=== PATIENT | male | born 1940 | race Hispanic/Latino ===

== ENCOUNTER 2016-10-07 03:58 | Inpatient (IN) | payer MEDICARE, MEDICAID ==
[~2016-10-07] VITALS: Ht 174 cm; Wt 71.8 kg
[~2016-10-07 03:58] MED LIST: ASPI-628 PO; ATOR40TA69 PO; CIPR-231 PO; ERGO500029 PO; FLUO20CA25 PO; GLUC100016 PO; LOSA50TA37 PO; MELO-253 PO; OMEP-113 PO; TAMS0.4C29 PO; TENO300T2 PO
[2016-10-07 05:32] VITALS: BP 173/72; PULSE 57; RESP 20; O2SAT 96
[2016-10-07] MEDS ORDERED: 0.9% Sodium Chloride 1,000 ML IV SCH (05:33)
[2016-10-07] MEDS ORDERED: Ondansetron 2 mg/mL 2 mL Inj IVPUSH PRN ×2 (05:35→13:35)
[2016-10-07] MEDS ORDERED: Polyethylene Glycol (PEG) 17 Gm Powder PO PRN ×2 (05:35→13:35)
[2016-10-07] MEDS ORDERED: Alum-Mag Hydrox-Simeth 30 mL Suspension PO PRN ×2 (05:35→13:35)
--- NOTE | 2016-10-07 06:44 | NUR ---
Admission Pt arrived to [facility] 3007 alert and oriented, answering questions appropriately, and able to make needs know. Pt arrived via EMS and was oriented to room, call light bed and policies. Pt was placed on IV fluids and told not to eat of drink anything. Pt agreed. Pt also instructed to call for assistance if he needed to get out of bed. Pt agreed. Interpretive services used for all care.
[2016-10-07 07:40] LABS: APPEARANCE,URINE HAZY (CLEAR,HAZY); COLOR,URINE YELLOW (YELLOW); OCCULT BLOOD,URINE NEGATIVE (NEGATIVE); UROBILINOGEN,URINE NORMAL (NORMAL)
--- NOTE | 2016-10-07 10:30 | NUR ---
Abd discomfrt Kath (daughter at bedside, interpreting for [place] speaking only) P: Pt complained of abd discomfrt, denies pain, reports is more like "upset stomach", PO Maalox offered as ordered by MD. Pt accepted I: Pt given PO Maalox. E: Pt reports abd discomfrt has resolved after PO medication.
[2016-10-07 12:02] VITALS: BP 138/61; PULSE 51; RESP 16; O2SAT 96
[2016-10-07] MEDS ORDERED: HYDR25TA4 PO (12:15)
[2016-10-07] MEDS ORDERED: SUCR1ORA2 PO (12:15)
[2016-10-07] MEDS ORDERED: SIMV40TA5 PO (12:15)
[2016-10-07] MEDS ORDERED: TRAM100C3 PO (12:15)
[2016-10-07] MEDS ORDERED: DICL75TA6 PO (12:15)
--- NOTE | 2016-10-07 13:36 | NUR ---
Social Work: Initial Assessment D: Per EMR review, pt is a 76 year old male admitted for small bowel obstruction. Pt is Medicare with DS supplement; no LTC or VA benefits. PCP is Tere Melgar MD. NOK is Alexa Mckinley Dtr, . Advanced directives not completed- SOCIOLOGY INSTRUCTOR provided information and intervention completed. Readmit score not entered at this time. SOCIOLOGY INSTRUCTOR met with pt and daughter at bedside. Pt is Stateless speaking- dtr provided translation. SW role and contact information provided. See initial assessment. [place], [place]. He is I at baseline and uses no DME. Pt continues to drive and has never had HH or skilled rehab. Pt and daughter express no concerns about discharge back home and state that family will transport pt. Pt has been I during admission. No sw needs identified at this time. A: Pt who is I at baseline. P: Anticipate pt to discharge home with no social work needs once medically stable; SOCIOLOGY INSTRUCTOR to continue to follow. NADIRA Blankenship Addendum: 10/07/16 at 1340 by ARIAS JONES Amended: Links added.
[2016-10-07 13:58] VITALS: PULSE 48
[2016-10-07 14:56] LABS: BASOPHILS % (AUTO) 0.3 % (0-3); MONOCYTES % (AUTO) 11.5 % (4-12); Mean Corpuscular Hemoglobin 29.1 pg (27.0-35.0); Mean Corpuscular Volume 87.9 fL (81-100); NEUTROPHILS % (AUTO) 61.2 % (40-74); Platelet Count 185 bil/L (150-400)
[2016-10-07] MEDS: Dextrose 5% 0.45% NaCl 1,000 ML IV SCH (15:10)
--- NOTE | 2016-10-07 16:14 | NUR ---
Abd discomfrt/BM Pt reports abd discomfrt, requested additional dose of PO Maalox with 650 mg PO Tylenol. Rx given at appro 1515. Reassessment of Rx completed, pt reports decreased adb discomfrt. Pt had had med, light brown formed stool. Call light within reach, will continue to monitor.
[2016-10-07 16:19] VITALS: BP 154/77; PULSE 48; RESP 16; O2SAT 94
[2016-10-07] MEDS: Heparin 5,000 Unit/mL Inj SUBQ SCH (18:04)
--- NOTE | 2016-10-07 18:07 | PCM.HPMED ---
Subjective Date of Service Oct 07, 2016 Primary Provider: Admitting Physician: Wilber Baron MD Primary Care Physician: Chela Melgar MD Attending Physician: Wilber Baron MD Chief Complaint: Abdominal pain History of Present Illness: 76 year old Kyrgyz speaking only male with past medical history as noted below and notable for prior episode of SBO (1st and only episode in June 2016 and resulting in partial bowel resection at that time) presented to [facility] [place] earlier this morning with complaint of acute lower abdominal pain that began around midnight and was associated with about four episodes of nausea and vomiting. Patient has not had any flatus and reports a only very small amount of stool since last night. He reportedly underwent a CT abdomen which was suggestive of acute small bowel obstruction. Attempt was made to transfer him to [facility] and then to [facility] but because of lack of bed availability he has now been transferred to [facility]. Currently patient reports improved abdominal pain from 10 to 3 out of 10 and denies any further nausea and has not had any further vomiting since his transfer. He otherwise denies any other associated or new symptoms. Allergies Coded Allergies: VALENTIN Inhibitors (Verified Allergy, Unknown, 07/15/14) Beta-Blockers (Beta-Adrenergic Bloc (Verified Allergy, Unknown, 07/15/14) NSAIDS (Non-Steroidal Anti-Inflamma (Verified Allergy, Unknown, 07/15/14) Home Medications Ciprofloxacin 500 Mg PO BID 10 Days Tenofovir Disoproxil Fumarate 300 Mg PO Q2DAY Tamsulosin ER 0.8 Mg PO DAILY 30 Days Atorvastatin Calcium 40 Mg PO DAILY Losartan Potassium 100 Mg PO DAILY Simvastatin 40 Mg PO HS Diclofenac ER 75 Mg PO BID Fluoxetine 40 Mg PO DAILY Meloxicam 15 Mg PO DAILY Tramadol HCl 50 Mg PO DAILY PRN Hydrochlorothiazide 25 Mg PO DAILY Sucralfate Susp 1 Gm PO ACHS Glucosamine Sulfate 2Kcl 1,000 Mg Tablet 1,500 Mg PO Exam Vital Signs & I/O Vital Sign- Last 8 Hours Date Time Temp Pulse Resp B/P Pulse Ox O2 Delivery O2 Flow Rate FiO2 10/07/16 16:19 37.0 48 16 154/77 94 Room Air 10/07/16 13:58 48 10/07/16 12:02 36.8 51 16 138/61 96 Room Air Lab & Micro Results Laboratory Tests Test 10/07/16 07:00 10/07/16 14:43 Urine Color Yellow (YELLOW) Urine Appearance Hazy (CLEAR,HAZY) Urine pH 5.0 (5.0-8.0) Urine Specific [place] 1.015 (1.003-1.035) Urine Protein Negativemg/dL (NEG,TRACE) Urine Glucose (UA) Negativemg/dL (NEGATIVE) Urine Ketones Negativemg/dL (NEGATIVE) Urine Occult Blood Negative (NEGATIVE) Urine Nitrite Negative (NEGATIVE) Urine Bilirubin Negative (NEGATIVE) Urine Urobilinogen Normalmg/dL (NORMAL) Urine Leukocyte Esterase Negative (NEGATIVE) Urine RBC 0-2/hpf (0-2) Urine WBC 0-5/hpf (0-5) Urine Epithelial Cells Few/hpf (NONE-MOD) Urine Crystals Amorphous urates (NONE Urine Bacteria None/hpf (NONE-FEW) Urine Hyaline Casts None/lpf (NONE) Urine Granular Casts None seen (NONE SEEN) Urine Waxy Casts None seen (NONE SEEN) Urine Red Blood Cell Casts None seen (NONE SEEN) Urine White Blood Cell Casts None seen (NONE SEEN) Urine Mucus None seen (None Seen) Urine Trichomonas None seen (NONE SEEN) Urine Yeast None (NONE SEEN) Urinalysis Comment None Urine Culture Reflexed Not indicated White Blood Count 6.6th/mm3 (3.8-10.1) Red Blood Count 4.05mil/mm3 (4.40-5.80) Hemoglobin 11.8g/dL (13.8-17.2) Hematocrit 35.6% (41.0-50.0) Mean Corpuscular Volume 87.9fL (81-100) Mean Corpuscular Hemoglobin 29.1pg (27.0-35.0) Mean Corpuscular Hemoglobin Concent 33.1% (32.0-37.0) Red Cell Distribution Width 12.8% (12.3-15.4) Platelet Count 185bil/L (150-400) Neutrophils (%) (Auto) 61.2% (40-74) Lymphocytes (%) (Auto) 24.8% (14-46) Monocytes (%) (Auto) 11.5% (4-12) Eosinophils (%) (Auto) 2.0% (0-5) Basophils (%) (Auto) 0.3% (0-3) Sodium Level 145mEq/L (134-144) Potassium Level 4.2mEq/L (3.5-5.2) Chloride Level 108mEq/L (97-108) Carbon Dioxide Level 26mmol/L (18-29) Blood Urea Nitrogen 28mg/dL (8-27) Creatinine 2.00mg/dL (0.76-1.27) Estimat Glomerular Filtration Rate 35mL/min (>59) Glucose Level 100mg/dL (60-99) Calcium Level 8.1mg/dL (8.5-10.1) Magnesium Level 2.0mg/dL (1.6-2.6) Total Bilirubin 1.3mg/dL (0.0-1.2) Aspartate Amino Transf (AST/SGOT) 21U/L (0-50) Alanine Aminotransferase (ALT/SGPT) 15U/L (0-44) Alkaline Phosphatase 81U/L (25-160) Total Protein 6.0g/dL (6.4-8.4) Albumin 3.6g/dL (3.4-5.0) Result Diagram: 10/07/16 14410/07/16 144 Review of Systems: Constitutional: Negative, except as otherwise mentioned in the history above. Ophthalmologic: Negative, except as otherwise mentioned in the history above. Cardiovascular: Negative, except as otherwise mentioned in the history above. Respiratory: Negative, except as otherwise mentioned in the history above. Gastrointestinal: Negative, except as otherwise mentioned in the history above. Genitourinary: Negative, except as otherwise mentioned in the history above. Musculoskeletal: Negative, except as otherwise mentioned in the history above. Neurological: Negative, except as otherwise mentioned in the history above. Psychiatric: Negative, except as otherwise mentioned in the history above. Hematologic/Lymphatic: Negative, except as otherwise mentioned in the history above. Allergic/Immunologic: Negative, except as otherwise mentioned in the history above. PMH CAD post CABG x 2 in 2006 Lumbar radiculopathy Anxiety CKD stage III Depression GERD Epiretinal membrane, bilateral Active Hepatitis B with associated hepatic Cirrhosis (under treatment) Hyperlipidemia Hypertension KATIA RA TIA BPH post prostatectomy Small bowel obstruction (1st episode on Jun 2016 and s/p partial bowel resection ) Surgical History post left inguinal hernia repair s/p partial bowel resection s/p CABG x 2 in 2006 Family History familial kidney disease (unclear details) Social History Hx Alcohol Use: No Hx Substance Use: No Hx Tobacco Use: No Smoking Status: Former Smoker Exam Vital Signs Vital Sign - Last Date Time Temp Pulse Resp B/P Pulse Ox O2 Delivery O2 Flow Rate FiO2 10/07/16 16:19 37.0 48 16 154/77 94 Room Air General: Alert, Oriented X3, Cooperative, No Acute Distress Head: Normal Eyes: PERRLA, EOMI, Scleral Anicteric Nose: Mucous Membr Moist/[place] Mouth: Mucous Membr Moist/[place] Neck: Supple Chest & Lungs: Chest Wall Normal, Clear to auscultation & percussion Cardiovascular: Regular Rate/Rhythm Pulses: NL carotid, radial, femoral, DP, PT Abdomen: Tender (tender mostly at lower abd), Non-distended, Normoactive bowel tones, Soft Extremities: No cyanosis/clubbing/edma bilat Skin: Other (no rash or ulcer) Neurological: Grossly Neurologically Intact, Cranial Nerves 2-12 Intact, Normal Speech Lymphatic: Other Lymph Nodes (no lymphadenopathy) Lab and Diagnostics Result Diagram: 10/07/16 1443 10/07/16 1443 X-Rays, CTs and MRIs CT abdomen/pelvis without contrast at outside medical ctr (per report): "small bowel obstruction with transition point at the site of prior anastomosis. No free air. Otherwise unremarkable study." Assessment & Plan 76 year old Kyrgyz speaking only male with past medical history notable for prior episode of SBO in June 2016 and resulting in partial bowel resection at that time present with acute abdominal pain, nausea and vomiting with imaging studies at outside medical ctr suggestive of acute SBO # Acute small bowel obstruction. present on admission. ongoing - NPO - c/w supportive care including IVF, antiemetics and pain control as needed - encourage ambulation - consider surgery consult if does not resolve in next day or so # History CAD. stable - resume home dose cardiac meds - f/u on Tele # CKD stage III. presumed stable - Cr is 2 which is the same as labs at Sunday. back in 2013 it was 1.49 - avoid nephrotoxic meds - f/u # History of HTN. controlled - Hold home HCTZ while NPO - c/w home dose Lisinopril # History of asymptomatic bradycardia. present on admission - avoid BB - f/u on Tele # Depression, chronic. stable - c/w Fluoxetine # GERD - PPI while NPO Expected length of hospital stay is greater than 2 midnights and likely 2-3 days GI Prophylaxis: Proton Pump Inhibitor VTE Prophylaxis: Sub-Q Heparin (Unfractionated) VTE Mechanical Devices: Intermittant Pneumatic CD Resuscitation Status: CPR: Attempt Resuscitation (discussed and verified with the patient) Time spent 65 min Giovanny Evans Oct 07, 2016 18:07
[2016-10-07 20:55] VITALS: BP 145/67; PULSE 47; RESP 16; O2SAT 97
[2016-10-08] MEDS: Heparin 5,000 Unit/mL Inj SUBQ SCH ×2 (00:15→08:36)
[2016-10-08 00:18] VITALS: BP 137/78; PULSE 48; RESP 16; O2SAT 97
[2016-10-08] MEDS: Dextrose 5% 0.45% NaCl 1,000 ML IV SCH (02:45)
--- NOTE | 2016-10-08 04:21 | NUR ---
Bradycardia Patient sinus bradycardia in the high 30's per fuel cell battery technician and is asymptomatic. Patient's has stated that he has a low heart rate normally. shift production supervisor MD paged, no further interventions ordered at this time. Will continue to monitor patient and Q1 hour rounding.
[2016-10-08 04:41] VITALS: BP 138/73; PULSE 51; RESP 18; O2SAT 98
[2016-10-08 05:50] LABS: Mean Corpuscular Hemoglobin 28.6 pg (27.0-35.0); Mean Corpuscular Volume 88.5 fL (81-100)
[2016-10-08 05:55] LABS: INR 1.08 ratio
[2016-10-08 06:56] VITALS: PULSE 48
[2016-10-08] MEDS ORDERED: Pantoprazole 4 mg/mL 10 mL Inj IVPUSH SCH (07:30)
[2016-10-08] MEDS ORDERED: TENOFOVIR 300 MG PO SCH (08:30)
[2016-10-08 10:22] VITALS: BP 141/67; PULSE 51; RESP 18; O2SAT 95
[2016-10-08 10:30] VITALS: PULSE 48
--- NOTE | 2016-10-08 10:56 | PCM.DIMED ---
Discharge Instructions Date of Service Oct 08, 2016 Dates of Hospitalization Oct 07, 2016 at 05:22 Discharge Diagnosis Discharge Diagnosis # Acute small bowel obstruction. present on admission. Resolved # History coronary artery disease. stable # Chronic kidney disease stage III. presumed stable - Cr 1.93 on 10/08/16 # History of hypertension. controlled # History of asymptomatic bradycardia. present on admission. ongoing # Depression, chronic. stable # GERD. stable Medication Instructions Resume your home medication as before Diet Low fat, Low Sodium, Heart Healthy Activity No restrictions Call your provider Fever or Chills, Shortness of breath, Chest pain, Excessive diarrhea, Other ( recurrent abdominal pain, nausea, vomiting) Patient Instructions Seek immediate medical attention if any new or worsening signs or symptoms occur. Follow-up plan 1. Followup with your primary care provider this coming week Follow-up Provider: Chela Melgar MD, Masoud Oct 08, 2016 10:56
--- NOTE | 2016-10-08 11:00 | NUR ---
Social Work: Discharge D: Pt discussed in am rounds. Pt is medically stable for discharge home today. CHRONIC CARE NURSE met with pt and family at bedside to confirm dcp and reassess. Dtr provided translation services to pt who is Swedish speaking. They agree with plan to go home and state that family will be assisting him during transition back home. Pt will not require DME and no needs from family have been identified. EMR reviewed; pt is ambulating I and no social work needs have been identified at this time. A: [place] and lives alone. P: Anticipate pt to discharge home today via POV and no social work needs. NADIRA Blankenship
--- NOTE | 2016-10-08 12:46 | NUR ---
Discharge Pt d/c home with daughter at 1245 via wc. Pt denied pain. IV d/c prior to leaving. Had 1 BM this AM. Pts diet advanced to full liquid this AM from clears. Pt tolerated well, denied pain/nausea. For lunch, diet advanced to HH. Pt had half a sandwich, soda, chips and denied feeling nausea/pain. Lots of teaching provided re diet and bowel obstruction. Pt stated to be willing and compliant. States lots of changes had been made since prior obstruction last year. VSS. All personal belongings left with pt. Translation provided by daughter Kath. Family refused the use of translation on screen, stating that it's inaccurate. 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 Family is from [place].
--- NOTE | 2016-10-08 16:19 | PCM.DC.MED ---
Discharge Summary Date of Service Oct 08, 2016 Dates of Hospitalization Date of Hospital Admission Oct 07, 2016 at 05:22 Date of Discharge: Oct 08, 2016 Providers: Admitting Physician: Wilber Baron MD Primary Care Physician: Chela Melgar MD Attending Physician: Wilber Baron MD Diagnosis at Time of Discharge Diagnosis at Time of Discharge # Acute small bowel obstruction. present on admission. Resolved sooner than expected. # History coronary artery disease. stable # Chronic kidney disease stage III. presumed stable - Cr 1.93 on 10/08/16 # History of hypertension. controlled # History of asymptomatic bradycardia. present on admission. ongoing # Depression, chronic. stable # GERD. stable Procedures XRay, CTs & MRIs CT abdomen/pelvis without contrast at outside medical ctr (per report): "small bowel obstruction with transition point at the site of prior anastomosis. No free air. Otherwise unremarkable study. Brief History 76 year old Urdu speaking only male with past medical history as noted below and notable for prior episode of SBO (1st and only episode in June 2016 and resulting in partial bowel resection at that time) presented to [facility] [place] earlier this morning with complaint of acute lower abdominal pain that began around midnight and was associated with about four episodes of nausea and vomiting. Patient has not had any flatus and reports a only very small amount of stool since last night. He reportedly underwent a CT abdomen which was suggestive of acute small bowel obstruction. Attempt was made to transfer him to [facility] and then to [facility] but because of lack of bed availability he has now been transferred to [facility]. Currently patient reports improved abdominal pain from 10 to 3 out of 10 and denies any further nausea and has not had any further vomiting since his transfer. He otherwise denies any other associated or new symptoms. Hospital Course # Acute small bowel obstruction. present on admission. Clinically resolved with patient reporting 2BM the night of admission and one on day of d/c after tolerating full liq diet for breakfast. - no further abd pain on exam by day of d/c - no n/v # History CAD. stable - c/w home dose cardiac meds # CKD stage III. presumed stable - Cr is 2 which is the same as labs at [place]. back in 2013 it was 1.49 - by day of d/c down to 1.93 # History of HTN. controlled # History of asymptomatic bradycardia. present on admission - avoid BB # Depression, chronic. stable - c/w Fluoxetine # GERD. stable Exam Vital Signs (Last) Date Time Temp Pulse Resp B/P Pulse Ox O2 Delivery O2 Flow Rate FiO2 10/08/16 10:30 48 10/08/16 10:22 36.6 18 141/67 95 Room Air Test 10/07/16 07:00 10/07/16 14:43 10/08/16 05:24 Urine Color Yellow (YELLOW) Urine Appearance Hazy (CLEAR,HAZY) Urine pH 5.0 (5.0-8.0) Urine Specific [place] 1.015 (1.003-1.035) Urine Protein Negativemg/dL (NEG,TRACE) Urine Glucose (UA) Negativemg/dL (NEGATIVE) Urine Ketones Negativemg/dL (NEGATIVE) Urine Occult Blood Negative (NEGATIVE) Urine Nitrite Negative (NEGATIVE) Urine Bilirubin Negative (NEGATIVE) Urine Urobilinogen Normalmg/dL (NORMAL) Urine Leukocyte Esterase Negative (NEGATIVE) Urine RBC 0-2/hpf (0-2) Urine WBC 0-5/hpf (0-5) Urine Epithelial Cells Few/hpf (NONE-MOD) Urine Crystals Amorphous urates (NONE Urine Bacteria None/hpf (NONE-FEW) Urine Hyaline Casts None/lpf (NONE) Urine Granular Casts None seen (NONE SEEN) Urine Waxy Casts None seen (NONE SEEN) Urine Red Blood Cell Casts None seen (NONE SEEN) Urine White Blood Cell Casts None seen (NONE SEEN) Urine Mucus None seen (None Seen) Urine Trichomonas None seen (NONE SEEN) Urine Yeast None (NONE SEEN) Urinalysis Comment None Urine Culture Reflexed Not indicated Neutrophils (%) (Auto) 61.2% (40-74) Lymphocytes (%) (Auto) 24.8% (14-46) Monocytes (%) (Auto) 11.5% (4-12) Eosinophils (%) (Auto) 2.0% (0-5) Basophils (%) (Auto) 0.3% (0-3) Magnesium Level 2.0mg/dL (1.6-2.6) Total Bilirubin 1.3mg/dL (0.0-1.2) Aspartate Amino Transf (AST/SGOT) 21U/L (0-50) Alanine Aminotransferase (ALT/SGPT) 15U/L (0-44) Alkaline Phosphatase 81U/L (25-160) Total Protein 6.0g/dL (6.4-8.4) Albumin 3.6g/dL (3.4-5.0) White Blood Count 4.2th/mm3 (3.8-10.1) Red Blood Count 3.91mil/mm3 (4.40-5.80) Hemoglobin 11.2g/dL (13.8-17.2) Hematocrit 34.6% (41.0-50.0) Mean Corpuscular Volume 88.5fL (81-100) Mean Corpuscular Hemoglobin 28.6pg (27.0-35.0) Mean Corpuscular Hemoglobin Concent 32.4% (32.0-37.0) Red Cell Distribution Width 12.9% (12.3-15.4) Platelet Count 156bil/L (150-400) Prothrombin Time 11.6sec (8.1-12.5) Prothromb Time International Ratio 1.08ratio Activated Partial Thromboplast Time 31.5sec (22.8-33.0) Sodium Level 139mEq/L (134-144) Potassium Level 3.8mEq/L (3.5-5.2) Chloride Level 103mEq/L (97-108) Carbon Dioxide Level 27mmol/L (18-29) Blood Urea Nitrogen 23mg/dL (8-27) Creatinine 1.93mg/dL (0.76-1.27) Estimat Glomerular Filtration Rate 36mL/min (>59) Glucose Level 102mg/dL (60-99) Calcium Level 7.7mg/dL (8.5-10.1) Discharge Medications Discharge Medications Atorvastatin Calcium (Atorvastatin Calcium) 40 Mg Tablet 40 MG PO DAILY ( Reported) Diclofenac ER (Diclofenac ER) 75 Mg Tablet 75 MG PO BID (Reported) Fluoxetine (Fluoxetine) 20 Mg Capsule 40 MG PO DAILY (Reported) Hydrochlorothiazide (Hydrochlorothiazide) 25 Mg Tablet 25 MG PO DAILY (Reported ) Losartan Potassium (Losartan Potassium) 50 Mg Tablet 100 MG PO DAILY (Reported) Meloxicam (Meloxicam) 15 Mg Tablet 15 MG PO DAILY (Reported) Simvastatin (Simvastatin) 40 Mg Tablet 40 MG PO HS (Reported) Sucralfate Susp (Carafate Susp) 1 Gm/10 Ml Oral.susp 1 GM PO ACHS (Reported) Tamsulosin ER (Tamsulosin ER) 0.4 Mg Cap.er.24h 0.8 MG PO DAILY (Reported) Tenofovir Disoproxil Fumarate (Viread) 300 Mg Tablet 300 MG PO Q2DAY (Reported) As needed Tramadol HCl (Tramadol HCl ER) 100 Mg Cpbp.25.75 50 MG PO DAILY PRN PRN For Pain (Reported) Miscellaneous Medications Glucosamine Sulfate 2Kcl (Glucosamine) 1,000 Mg Tablet 1,500 MG PO (Reported) Additional med instructions Resume your home medication as before Followup Plan Disposition: Home Follow-up plan 1. Followup with your primary care provider this coming week Discharge Diet: Low fat, Low Sodium, Heart Healthy Discharge Activity: No restrictions Patient Instructions Seek immediate medical attention if any new or worsening signs or symptoms occur. Follow-up Provider: Chela Melgar MD Time spent 30 min copies to: Chela Melgar MD, Masoud Oct 08, 2016 16:19
[2016-10-09] MEDS ORDERED: TENOFOVIR DISOPROXIL FUMARATE 300 MG PO SCH (09:00)
== END 2016-10-08 12:40 | disposition home or self-care (01) | DRG 390 ==
LOC: MPC 05:22
PROVIDERS: ADMIT Hospitalist; ATTEND Internal Medicine
DX: K56.60 Unspecified intestinal obstruction (principal); I25.10 Atherosclerotic heart disease of native coronary artery without angina pectoris; N18.3 Chronic kidney disease, stage 3 (moderate); I12.9 Hypertensive chronic kidney disease with stage 1 through stage 4 chronic kidney disease, or unspecified chronic kidney disease; F32.9 Major depressive disorder, single episode, unspecified; K21.9 Gastro-esophageal reflux disease without esophagitis; Z87.891 Personal history of nicotine dependence; Z95.1 Presence of aortocoronary bypass graft; E78.5 Hyperlipidemia, unspecified